=== PATIENT | female | born 1995 ===

== ENCOUNTER 2023-08-29 13:56 | Outpatient (REF) | payer BC, SELFPAY ==
--- OUTSIDE RECORDS SUMMARY | 2023-08-29 14:01 | XMS_ITS | CCD ---
Author Name Unknown Address [address] [place] [address] [id number] Organization Unknown Address [address] [place] [address] [phone] Care Team Providers Care Agricultural Extension Specialist Name Role Phone November Attending Physician [phone] November Rounding (Secondary) Physician [phone] Vital Signs Unknown or Not Available. Allergies Allergy Code Allergy Type Reaction Status No Known Drug Allergies 0 No known drug allergies Active Procedures Unknown or Not Available. History of Immunizations Unknown or Not Available. Problems Unknown or Not Available. Results Unknown or Not Available. Active Medications Unknown or Not Available. Medications Administered During Visit Unknown or Not Available. Encounters Encounter Diagnosis Diagnosis Code Start Date Removal of intrauterine device [id number] 0 01/04/2023 Social History Unknown or Not Available. Patient Decision Aids Unknown or Not Available. Discharge Instructions You were admitted to [facility] on 01/04/2023 16:27 with a principal diagnosis of Encounter for removal of intrauterine contraceptive device You were discharged from [facility] on 01/04/2023 16:27 Should you have any questions prior to discharge, please contact a member of your healthcare team. If you have left the hospital and have any questions, please contact your primary care physician. Chief Complaint and Reason For Visit Unknown or Not Available. Function Status Unknown or Not Available. Plan of Care Unknown or Not Available. Referral/Transition of Care Unknown or Not Available.
--- OUTSIDE RECORDS SUMMARY | 2023-08-29 14:01 | XMS_ITS | CCD ---
Author Name Unknown Address [address] [place] [address] [phone] Organization Unknown Address [address] [place] [address] [phone] Care Team Providers Care Coal Or Ore Controller Name Role Phone November Attending Physician [phone] MAYURINovember Rounding (Secondary) Physician [phone] Vital Signs Unknown or Not Available. Allergies Allergy Code Allergy Type Reaction Status No Known Drug Allergies 0 No known drug allergies Active Procedures Unknown or Not Available. History of Immunizations Unknown or Not Available. Problems Unknown or Not Available. Results CULT URINE CULTURE* - Colle t Date/Time: 05/02/2023 14:11 Test Name Code Test Result Test Units Test Ref Rang e COLLECTION MODE: 86410-1 NOT STATED N/A CHLAMYDIA/GC AMPLIFIED PROBE * - Collect Date/Time: 05/02/2023 14:41 Test Name Code Test Result Test Units Test Ref Rang e Chlamydia Result Negative N/A Negative GC Result Negative N/A Negative Active Medications Unknown or Not Available. Medications Administered During Visit Unknown or Not Available. Encounters Encounter Diagnosis Diagnosis Code Start Date test positive [id number] 05/02/20 23 Social History Unknown or Not Available. Patient Decision Aids Unknown or Not Available. Discharge Instructions You were admitted to on 05/02/2023 13:16 with a principal diagnosis of Encounter for test, result positive You had the following tests done:CHLAMYDIA/GC AMPLIFIED PROBE*CULT URINE CULTURE* You were discharged from on 05/02/2023 13:16 Should you have any questions prior to [...]
--- OUTSIDE RECORDS SUMMARY | 2023-08-29 14:01 | XMS_ITS | CCD ---
Author Name Unknown Address [address] [place] [address] [phone] Organization Unknown Address [address] [place] [address] [phone] Care Team Providers Care Cabin Worker Name Role Phone November Attending Physician [phone] Vital Signs Unknown or Not Available. Allergies Allergy Code Allergy Type Reaction Status No Known Drug Allergies 0 No known drug allergies Active Procedures Unknown or Not Available. History of Immunizations Unknown or Not Available. Problems Unknown or Not Available. Results HEMATOLOGY* - Colle ct Date/Time: 05/12/2023 15:33 Test Name Code Test Result Test Units Test Ref Rang e WBC 6690-2 9.53 th/cmm L=5.00 H=10.00 NEUT % 70.2 % L=40.0 H=80.0 LYMPH % 23.2 % L=10.0 H=50.0 MONO % 28710-1 4.3 % L=2.0 H=12.0 EOS % 1.2 % L=0.0 H=8.0 BASO % 0.7 % L=0.0 H=3.0 IG % 2514-8 0.4 % L=0.0 H=1.1 NRBC % 32351-5 0.0 % L=0.0 H=0.0 NEUT abs count 751-8 6.7 th/cmm L=1.6 H=8. 4 LYMPH abs count 731-0 2.2 th/cmm L=1.5 H=4 .0 MONO abs count 742-7 0.4 th/cmm L=0.2 H=1. 0 EOS abs count 711-2 0.1 th/cmm L=0.0 H=0.5 BASO abs count 704-7 0.1 th/cmm L=0.0 H=0. 2 IG abs count 16695-4 0.0 th/cmm L=0.0 H=0.1 NRBC abs count 81773-2 0.0 mil/cmm L=0.0 H=0. 0 RBC 789-8 4.85 mil/cmm L=3.90 H=5.40 HEMOGLOBIN 718-7 14.2 gm/dL L=12.0 H=16.0 HEMATOCRIT 4544-3 42 % L=37 H=47 MCV 787-2 86 fL L=82 H=92 MCH 785-6 29.3 pg L=27.0 H=31.0 MCHC 786-4 34.0 % L=32.0 H=36.0 RDW-SD 788-0 38.9 fL L=39.0 H=49.0 PLATELET COUNT 777-3 256 th/cmm L=150 H=45 0 TYPE AND ANTIBODY S CREEN* - Collect Date/Time: 05/12/2023 15:33 Test Name Code Test Result Test Units Test Ref Rang e Blood Group 883-9 O N/A Rh (D) 10520-1 POSITIVE N/A Antibody Screen 1005-8 NEGATIVE N/A HEP B SURF ANTIGEN* - [facility] t Date/Time: 05/12/2023 15:33 Test Name Code Test Result Test Units Test Ref Rang e Hep B Surface Ag Negative N/A Negative HEP C ANTIBODY WITH REFLEX P CR - Collect Date/Time: 05/12/2023 15:33 Test Name Code Test Result Test Units Test Ref Rang e Hep C Ab w Rfx PCR Negative N/A Negati ve HIV 1/2 ANTIGEN AND ANTIBODY SCREEN - Collect Date/Time: 05/12/2023 15:33 Test Name Code Test Result Test Units Test Ref Rang e HIV 1/2 Antigen andAntibody Negative N/A Negative LEAD WHOLE BLOOD* - Collect Date/Time: 05/12/2023 15:33 Test Name Code Test Result Test Units Test Ref Rang e Lead <2.0 N/A <2.0 RUBELLA IGG ANTIBODY - [facility] Date/Time: 05/12/2023 15:33 Test Name Code Test Result Test Units Test Ref Rang e Rubella IgG Ab Positive N/A See Note SYPHILIS SEROLOGY* - Collect Date/Time: 05/12/2023 15:33 Test Name Code Test Result Test Units Test Ref Rang e Syphilis Serology Negative N/A Negativ e Active Medications Unknown or Not Available. Medications Administered During Visit Unknown or Not Available. Encounters Encounter Diagnosis Diagnosis Code Start Date Encounter for other specified screennitesh hearn [id number] 05/12/2023 Social History Unknown or Not Available. Patient Decision Aids Unknown or Not Available. Discharge Instructions You were admitted to [facility] on 05/12/2023 15:25 with a principal diagnosis of Encounter for other specified screening You had the following tests done:HEP B SURF ANTIGEN*HEP C ANTIBODY WITH REFLEX PCRHIV 1/2 ANTIGEN AND ANTIBODY SCREENLEAD WHOLE BLOOD* HEMATOLOGY* TYPE AND ANTIBODY SCREEN*RUBELLA IGG ANTIBODYSYPHILIS SEROLOGY* You were discharged from [facility] on 05/12/2023 15:25 Should you have any questions prior to [...]
--- OUTSIDE RECORDS SUMMARY | 2023-08-29 14:01 | XMS_ITS | CCD ---
Author Name Unknown Address [address] [place] [address] [phone] Organization Unknown Address [address] [place] [address] [phone] Care Team Providers Care Behavioral Medical Director Name Role Phone KANIKA BATES Attending Physician [phone] KANIKA BATES Rounding (Secondary) Physician [phone] Vital Signs Unknown or Not Available. Allergies [...] Encounters Encounter Diagnosis Diagnosis Code Start Date Sprain of unspecified ligame nt of right ankle, subsequent encounter [id number] 01/18/2023 Social History Unknown or Not Available. Patient Decision Aids Unknown or Not Available. Discharge Instructions You were admitted to [facility] on 01/18/2023 00:00 with a principal diagnosis of Sprain of unspecified ligament of right ankle, subsequent encounter You were discharged from [facility] on 01/18/2023 00:00 Should you have any questions prior to [...]
--- OUTSIDE RECORDS SUMMARY | 2023-08-29 14:02 | XMS_ITS | CCD ---
Author Name Unknown Address [address] [place] [address] [phone] Organization Unknown Address [address] [place] [address] [phone] Care Team Providers Care Carbide Operator Name Role Phone ZULEIKA MILIAN Attending Physician [phone] ZULEIKA MILIAN Rounding (Secondary) Physicia n [phone] Vital Signs Unknown or Not Available. Allergies [...] Encounters Encounter Diagnosis Diagnosis Code Start Date care: primigravida [id number] 06/2024 Social History Unknown or Not Available. Patient Decision Aids Unknown or Not Available. Discharge Instructions You were admitted to [facility] on 08/17/2023 16:02 with a principal diagnosis of Encounter for supervision of normal first , second trimester You were discharged from [facility] on 08/17/2023 16:02 Should you have any questions prior to [...]
--- OUTSIDE RECORDS SUMMARY | 2023-08-29 14:02 | XMS_ITS | CCD ---
Author Name Unknown Address [address] [place] [address] [phone] Organization Unknown Address [address] [place] [address] [phone] Care Team Providers Care Product Owner Name Role Phone KANIKA BATES Attending Physician [phone] KANIKA BATES Rounding (Secondary) Physician [phone] Vital Signs Unknown or Not Available. Allergies [...] of unspecified ligame nt of right ankle, initial encounter [id number] 2022 Social History Unknown or Not Available. Patient Decision Aids Unknown or Not Available. Discharge Instructions You were admitted to [facility] on 2022 11:04 with a principal diagnosis of Sprain of right ankle You were discharged from [facility] on 2022 00:00 Should you have any questions prior [...]
--- OUTSIDE RECORDS SUMMARY | 2023-08-29 14:02 | XMS_ITS | CCD ---
Author Name Unknown Address [address] [place] [address] [id number] Organization Unknown Address [address] [place] [address] [phone] Care Team Providers Care Core Drier Name Role Phone ANNY STEELE Attending Physician [phone] DEANNA HOSKINS Er Physician 2 [phone] ABDON Acosta Registered Nurse [phone] Vital Signs Vital Sign Value Unit Date/Time Recent/Initial ? BMI (Body Mass Index) 29.86 kg/m^2 11/18/2022 09: 02 Initial VS Weight Measured 185 lbs 11/18/2022 09:02 Ini tial VS Height 66 in 11/18/2022 09:02 Initial VS BSA (Body Surface Area) 1.98 m^2 11/18/2022 0 9:02 Initial VS BP Systolic 114 mmHg 11/18/2022 09:02 Initial VS BP Diastolic 78 mmHg 11/18/2022 09:02 Initia l VS Respiratory Rate 10 bpm 11/18/2022 09:02 In itial VS Heart Rate 72 bpm 11/18/2022 09:02 Initial VS O2 % BldC Oximetry 100 % 11/18/2022 09:02 Initial VS Body Temperature 37.1 degrees 11/18/2022 09:02 In itial VS BMI (Body Mass Index) 29.86 kg/m^2 11/18/2022 09: 15 Most Recent VS Weight Measured 185 lbs 11/18/2022 09:15 Mos t Recent VS Height 66 in 11/18/2022 09:15 Most Rec ent VS BSA (Body Surface Area) 1.98 m^2 11/18/2022 0 9:15 Most Recent VS Body Temperature 37.1 degrees 11/18/2022 09:[address] Recent VS BP Systolic 123 mmHg 11/18/2022 11:02 Most Re cent VS BP Diastolic 76 mmHg 11/18/2022 11:02 Most R ecent VS Respiratory Rate 16 bpm 11/18/2022 11:[address] Recent VS Heart Rate 86 bpm 11/18/2022 11:02 Most Rec ent VS O2 % BldC Oximetry 100 % 11/18/2022 11:02 Most Recent VS Allergies Allergy Code Allergy Type Reaction Status No Known Drug Allergies 0 No known drug allergies Active Procedures Unknown or Not Available. History of Immunizations Unknown or Not Available. Problems Unknown or Not Available. Results Unknown or Not Available. Active Medications Medication Code Dose Units Frequency Route Modificatio n Start Date/Time IBUPROFEN TABLET: 600MG 401412 600 MG X1 PO 11/18/2022 10:26 Medications Administered During Visit Unknown or Not Available. Encounters Encounter Diagnosis Diagnosis Code Start Date Sprain of unspecified ligame nt of right ankle, initial encounter [id number] 11/18/2022 Social History Unknown or Not Available. Patient Decision Aids Unknown or Not Available. Discharge Instructions You were admitted to [facility] on 11/18/2022 08:49 with a principal diagnosis of Sprain of unspecified ligament of right ankle, initial encounter You were discharged from [facility] on 11/18/2022 11:03 Should you have any questions prior to discharge, please contact a member of your healthcare team. If you have left the hospital and have any questions, please contact your primary care physician. Chief Complaint and Reason For Visit Chief Complaint Date of Onset RIGHT ANKLE INJURY Function Status Unknown or Not Available. Plan of Care Unknown or Not Available. Referral/Transition of Care Unknown or Not Available.
--- OUTSIDE RECORDS SUMMARY | 2023-08-29 14:02 | XMS_ITS | CCD ---
Author Name Unknown Address [address] [place] [address] [id number] Organization Unknown Address [address] [place] [address] [phone] Care Team Providers Care Java Software Developer Name Role Phone November Attending Physician [phone] November Rounding (Secondary) Physician [phone] Vital Signs Unknown or Not Available. Allergies [...] Diagnosis Diagnosis Code Start Date care: primigravida [id number] Social History Unknown or Not Available. Patient Decision Aids Unknown or Not Available. Discharge Instructions You were admitted to on 06/23/2023 14:40 with a principal diagnosis of Encounter for supervision of normal first , second trimester You were discharged from on 06/23/2023 14:40 Should you have any questions prior to [...]
--- OUTSIDE RECORDS SUMMARY | 2023-08-29 14:02 | XMS_ITS | CCD ---
Author Name Unknown Address [address] [place] [address] [id number] Organization Unknown Address [address] [place] [address] [phone] Care Team Providers Care Gear Repair Supervisor Name Role Phone ELLEN YEAGER Attending Physician [phone] ELLEN YEAGER Rounding (Secondary) Physician [phone] Vital Signs Unknown or Not Available. Allergies [...] Diagnosis Diagnosis Code Start Date care: primigravida [id number] Social History Unknown or Not Available. Patient Decision Aids Unknown or Not Available. Discharge Instructions You were admitted to [facility] on 06/02/2023 14:58 with a principal diagnosis of Encounter for supervision of normal first , second trimester You were discharged from [facility] on 06/02/2023 14:58 Should you have any questions prior to [...]
--- OUTSIDE RECORDS SUMMARY | 2023-08-29 14:02 | XMS_ITS | CCD ---
Author Name Unknown Address [address] [place] [address] [phone] Organization Unknown Address [address] [place] [address] [phone] Care Team Providers Care Obgyn Nurse Name Role Phone November Attending Physician [phone] November Rounding (Secondary) Physician [phone] Vital Signs Unknown or Not Available. Allergies [...] Diagnosis Diagnosis Code Start Date care: primigravida [id number] Social History Unknown or Not Available. Patient Decision Aids Unknown or Not Available. Discharge Instructions You were admitted to [facility] on 07/21/2023 16:32 with a principal diagnosis of Encounter for supervision of normal first , second trimester You were discharged from [facility] on 07/21/2023 16:32 Should you have any questions prior to [...]
== END 2023-08-29 13:57 | disposition home or self-care (01) ==
LOC: NCHCN 13:56
PROVIDERS: Visit Provider Physician Assistant
DX: J02.9 Acute pharyngitis, unspecified (principal)
CPT/HCPCS: 87070

== ENCOUNTER 2023-12-08 15:27 | Outpatient (REF) | payer BC, SELFPAY | END 2023-12-08 15:28 | disposition home or self-care (01) | LOC: NCHCN 15:27 | PROVIDERS: Visit Provider Family Medicine | DX: R39.9 Unspecified symptoms and signs involving the genitourinary system (principal); R82.89 Other abnormal findings on cytological and histological examination of urine | CPT/HCPCS: 87086 ==

== ENCOUNTER 2024-10-15 12:08 | Outpatient (REF) | payer BC, SELFPAY ==
[2024-10-15 14:42] LABS: TSH (W/Ref FT4) 3.94 uIU/mL (0.36-3.74)
== END 2024-10-15 12:09 | disposition home or self-care (01) ==
LOC: NCHCN 12:08
PROVIDERS: PCP Family Medicine; Visit Provider Family Medicine
DX: L65.9 Nonscarring hair loss, unspecified (principal)
CPT/HCPCS: 84439; 84443

== ENCOUNTER 2024-10-16 22:42 | Outpatient (REF) | payer BC, SELFPAY ==
[2024-10-17 17:31] LABS: T4, Free 1.1 ng/dL (0.8-2.2)
== END 2024-10-16 22:43 | disposition home or self-care (01) ==
LOC: NCHCN 22:42
PROVIDERS: PCP Family Medicine; Visit Provider Family Medicine
DX: L65.9 Nonscarring hair loss, unspecified (principal)
CPT/HCPCS: 84439

== ENCOUNTER 2024-12-05 09:07 | Outpatient (REF) | payer BC, SELFPAY ==
[2024-12-05 16:10] LABS: TSH (W/Ref FT4) 3.97 uIU/mL (0.36-3.74); Vitamin B12 536 pg/mL (193-986); Vitamin D 25 Total 19 ng/mL (30-100)
[2024-12-05 16:14] LABS: Folate > 20.0 ng/mL (8.6-20.0)
[2024-12-05 16:33] LABS: FREE T4 0.93 ng/dL (0.76-1.46)
[2024-12-06 11:33] LABS: Thyroglobulin Antibody 42 U/mL (<=60)
[2024-12-17 08:51] LABS: Thyroperoxidase Antibody 39 U/mL (<=60)
== END 2024-12-05 09:08 | disposition home or self-care (01) ==
LOC: NCHCN 09:07
PROVIDERS: PCP Family Medicine; Visit Provider Family Medicine
DX: E03.8 Other specified hypothyroidism (principal); R19.8 Other specified symptoms and signs involving the digestive system and abdomen
CPT/HCPCS: 82306; 82607; 82746; 83525; 83735; 84439; 84443; 86376; 86800